=== PATIENT | male | born 1965 | race African-American/Black ===

== ENCOUNTER → 2016-11-16 | Outpatient (CLI) | payer OTHER ==
[~2016-11-16] MED LIST: IBUPROFEN PO; IBUPROFEN800 MG PO; LISINOPRIL-HCTZ1 T16 PO; PREDNISONE PO
[2016-11-16 15:36] LABS: POC - CREATININE 1.9 mg/dL (0.64-1.27)
== END | disposition home or self-care (01) ==
LOC: CCAT 12:57
PROVIDERS: Family Medicine
DX: N28.89 Other specified disorders of kidney and ureter (principal)
CPT/HCPCS: 82565

== ENCOUNTER → 2016-11-24 | Outpatient (CLI) | payer OTHER ==
[2016-11-24 11:01] LABS: POC - CREATININE 2.49 mg/dL (0.64-1.27)
== END | disposition home or self-care (01) ==
LOC: CCAT 09:58
PROVIDERS: Family Medicine
DX: N28.89 Other specified disorders of kidney and ureter (principal)
CPT/HCPCS: 82565